=== PATIENT | male | born 1980 | race Caucasian/White ===

== ENCOUNTER 2025-03-09 15:12 | Emergency (ER) | payer OTHER, SELFPAY ==
[2025-03-09] VITALS (12 sets, daily range): BP systolic 144–180; BP diastolic 83–119; PULSE 89; TEMP 37.4; O2SAT 95–97; BMI 42.4
--- NOTE | 2025-03-09 15:52 | XR_ITS ---
[facility] [place] [id number] Patient Name: POP GABRIEL MRN: [id number] date: 1980 Sex: M Assigned Patient Location: ER Current Patient Location: ER Accession/Order Number: [id number] Exam Date: 03/09/2025 16:29 Report Date: 03/09/2025 16:29 At the request of: ALIDA HAMILTON MD Procedure: XR chest 1V Single view chest: CLINICAL HISTORY: fever COMPARISON: None FINDINGS: The heart is normal in size. The lungs are clear. The pulmonary vasculature is normal. Mediastinum and hilar regions are unremarkable. No pleural effusions are seen. Visualized bones are intact. XR/XR chest 1V IMPRESSION: NEGATIVE CHEST. Impression dictated by: Ed Griffith Jr.OJay 03/09/2025 4:29 PM Dictation Location: [place] [address] Electronically authenticated by: [id number] Y Date: 03/09/2025 16:29
--- NOTE | 2025-03-09 15:53 | ED_ITS ---
HPI HPI - General Adult General Chief complaint: Weakness Stated complaint: WEAKNESS Time Seen by Provider: 03/09/25 15:41 Source: patient Mode of arrival: walk-in History of Present Illness HPI narrative: 44-year-old male presents for fever and feeling weak. He and his family have been camping and got back 2 days ago. Since then he has felt rundown and his checked his temperature at home and he had a fever. He has not had a cough or chest pain or vomiting or diarrhea. No skin lesions. He states he has been urinating frequently and was worried he might have a UTI. He has a history of hypertension and has been taking his medications. Related Data Home Medications ?Medication ?Instructions ?Recorded ?Confirmed amlodipine 10 mg tablet mg 03/09/25 losartan 100 mg tablet mg 03/09/25 spironolactone 50 mg tablet mg 03/09/25 Allergies Allergy/AdvReac Type Severity Reaction Status Date / Time No Known Drug Allergies Allergy Verified 03/09/25 15:41 Review of Systems ROS Narrative A ten point review of systems is negative except as noted above. PFSH PFSH Social History Little interest or pleasure in doing things: not at all Feeling down, depressed, or hopeless: not at all Exam Narrative Exam Narrative: Nurses note and vital signs reviewed and patient is not hypoxic. General: The patient appears well and in no apparent distress. Patient is resting comfortably on cart. Skin: Warm, dry, no pallor noted. There is no rash noted. No skin lesions present. Head: Normocephalic, atraumatic Eye: Normal conjunctiva, no drainage Ears, Nose, Mouth, and Throat: oral mucosa is moist. Nares patent. Cardiovascular: Regular Rate and Rhythm Respiratory: Patient is in no distress, no accessory muscle use, lungs are clear to auscultation, no wheezing, rales or rhonchi Back: non-tender, no CVA tenderness bilaterally to percussion. GI: Soft and nontender, obese Musculoskeletal: The patient has no evidence of calf tenderness, no pitting edema, symmetrical pulses noted bilaterally Neurological: A&O, normal speech Psychiatric: Cooperative Constitutional Vital Signs, click to edit/add: Last Vital Signs Temp 99.3 F 03/09/25 15:42 Pulse 89 03/09/25 15:42 Resp 16 03/09/25 15:42 BP 144/92 H 03/09/25 16:45 Pulse Ox 96 03/09/25 16:34 O2 Del Method Room Air 03/09/25 15:42 Course Vital Signs Vital signs: Vital Signs Temperature 99.3 F 03/09/25 15:42 Pulse Rate 89 03/09/25 15:42 Respiratory Rate 16 03/09/25 15:42 Blood Pressure 168/105 H 03/09/25 15:42 Pulse Oximetry 96 03/09/25 15:42 Oxygen Delivery Method Room Air 03/09/25 15:42 Temperature 99.3 F 03/09/25 15:42 Pulse Rate 89 03/09/25 15:42 Respiratory Rate 16 03/09/25 15:42 Blood Pressure 144/92 H 03/09/25 16:45 Pulse Oximetry 96 03/09/25 16:34 Oxygen Delivery Method Room Air 03/09/25 15:42 Medical Decision Making MDM Narrative Medical decision making narrative: His workup here is negative. He had a fever at home and my clinical impression is that he has a viral illness. No evidence of UTI or pneumonia and his WBC is normal. Blood pressure is improved since he has been here as well. Treatment diagnosis and follow-up were discussed with the patient and his . There is no indication for an antibiotic. Differential Diagnosis Differential Diagnosis: Viral illness, UTI, pneumonia Lab Data Lab results reviewed: Yes I reviewed the patient's lab results Labs: Lab Results 03/09/25 03/09/25 Range/Units 16:00 16:10 WBC 4.2 (4.0-11.0) 10^3/uL RBC 5.22 (4.70-6.10) 10^6/uL Hgb 16.5 (14.0-18.0) g/dL Hct 48.0 (42.0-54.0) % MCV 92.0 (80.0-94.0) fL MCH 31.6 (25.9-34.0) pg MCHC 34.4 (29.9-35.2) g/dL RDW 13.2 (11.0-15.0) % Plt Count 180 (150-450) 10^3/uL MPV 8.3 L (9.5-13.5) fL Sodium 141 (136-145) mmol/L Potassium 3.7 (3.5-5.1) mmol/L Chloride 103 (98-107) mmol/L Carbon Dioxide 28.7 (21.0-32.0) mmol/L Anion Gap 13.0 BUN 20.0 H (7.0-18.0) mg/dL Creatinine 1.21 (0.70-1.30) mg/dL Est GFR ( Amer) >60 (>=60 mL/min/1.73m^2) Est GFR (Non-Af Amer) >60 (>=60 mL/min/1.73m^2) BUN/Creatinine Ratio 16.5 Glucose 99 (74-106) mg/dL Calcium 9.2 (8.5-10.1) mg/dL Urine Color Yellow (YELLOW) Urine Clarity Clear (CLEAR) Urine pH 6.0 (5.0-9.0) Ur Specific [place] 1.025 (1.005-1.025) Urine Protein Trace (NEG/TRACE) mg/dL Urine Glucose (UA) 100 A (NEGATIVE) mg/dL Urine Ketones Trace A (NEGATIVE) mg/dL Urine Occult Blood Small A (NEGATIVE) Urine Nitrite Negative (NEGATIVE) Urine Bilirubin Negative (NEGATIVE) Urine Urobilinogen 0.2 (0.2-1.0) EU/dL Ur Leukocyte Esterase Negative (NEGATIVE) Urine RBC 2-5 A (0-2) #/HPF Urine WBC 0-2 A (NONE SEEN) #/HPF Ur Squamous Epith Cells Rare (NONE/RARE) #/LPF Urine Crystals None seen (None Seen) #/HPF Urine Bacteria Trace A (NONE SEEN) #/HPF Urine Casts None seen (NONE SEEN) #/LPF Urine Mucus Moderate A (NONE SEEN) Ur Culture Indicated? No Imaging Data Chest x-ray: Radiologist's impression: ITS Impressions Chest X-Ray 03/09/25 15:52 IMPRESSION: NEGATIVE CHEST. Impression dictated by: Alfonso Rojas Jr., D.O. 03/09/2025 4:29 PM Dictation Location: [place] [address] Electronically authenticated by: [id number] Y Date: 03/09/2025 16:29 Discharge Plan Discharge Chief Complaint: Weakness Clinical Impression: Viral illness Patient Disposition: Home, Self-Care Time of Disposition Decision: 17:00 Condition: Good Mode of Transportation: Private Vehicle Prescriptions / Home Meds: No Action amlodipine 10 mg tablet losartan 100 mg tablet spironolactone 50 mg tablet Print Language: Khmer Instructions: Viral Syndrome (ED) Referrals: CUBA ACHARYA [Primary Care Provider, Unknown] - 1 week
[2025-03-09 16:22] LABS: Hematocrit 48.0 % (42.0-54.0); Hemoglobin 16.5 g/dL (14.0-18.0); Mean Corpuscular HGB Conc 34.4 g/dL (29.9-35.2); Mean Corpuscular Hemoglobin 31.6 pg (25.9-34.0); Mean Corpuscular Volume 92.0 fL (80.0-94.0); Platelet Count 180 10^3/uL (150-450); Red Blood Count 5.22 10^6/uL (4.70-6.10); White Blood Count 4.2 10^3/uL (4.0-11.0)
[2025-03-09 16:23] LABS: Glucose Urine UA 100 mg/dL (NEGATIVE)
[2025-03-09 16:38] LABS: Anion Gap 13.0; Blood Urea Nitrogen 20.0 mg/dL (7.0-18.0); Calcium 9.2 mg/dL (8.5-10.1); Carbon Dioxide 28.7 mmol/L (21.0-32.0); Chloride 103 mmol/L (98-107); Estimated GFR (African America >60 (>=60 mL/min/1.73m^2); Estimated GFR (Non-African Ame >60 (>=60 mL/min/1.73m^2); Glucose 99 mg/dL (74-106); Potassium 3.7 mmol/L (3.5-5.1); Sodium 141 mmol/L (136-145)
[2025-03-09 16:51] LABS: Cast Seen? NONE SEEN #/LPF (NONE SEEN); Crystals Seen? None Seen #/HPF (None Seen); Urine Culture Indicated NO
[2025-03-09 17:10] LABS: Basophils Abs Manual 0.00 10^3/uL (0.00-0.10); Basophils Percent Manual 0.0 % (0.2-2.0); Eosinophils Absolute Manual 0.00 10^3/uL (0.00-0.70); Eosinophils Percent Manual 0.0 % (0.9-7.0); Lymphocytes Absolute Manual 0.67 10^3/uL (1.20-3.80); Lymphocytes Percent Manual 16.0 % (20.5-60.0); Monocytes Absolute Manual 0.84 10^3/uL (0.30-0.80); Monocytes Percent Manual 20.0 % (1.7-12.0); Segmented Neut Absolute Manual 2.68 10^3/uL (1.4-6.5); Segmented Neutrophils % Manual 64.0 (43.0-75.0)
== END 2025-03-09 17:10 | disposition home or self-care (01) ==
PROVIDERS: Emergency Provider Emergency Medicine; Family Provider Family Medicine; PCP Nurse Practitioner Family
DX: B34.9 Viral infection, unspecified (principal); R50.9 Fever, unspecified; R53.1 Weakness
CPT/HCPCS: 36415; 71045; 80048; 81001; 85007; 85027; 99285